=== PATIENT | female | born 1950 | race Caucasian/White ===

== ENCOUNTER 2017-12-08 09:33 | Emergency (ER) | payer MEDICARE, SELFPAY ==
[2017-12-08 09:33] VITALS: BP 192/99; PULSE 82; RESP 15; TEMP 36.5; O2SAT 97; BMI 35.5
--- NOTE | 2017-12-08 09:35 | NURSING ---
SYNCOPE, KWESI, HYPERKALEMIA, HX CAD PCU STEPDOWN KRANTHI
[2017-12-08 09:50] VITALS: BP 181/91
--- NOTE | 2017-12-08 10:26 | ED.RN ---
BP prior to sports medicine specialist 149/75. physician aware. No med given.
[2017-12-08 10:30] VITALS: BP 149/75
[2017-12-08 10:42] VITALS: BP 130/71; PULSE 72; RESP 16
--- NOTE | 2017-12-08 11:36 | ED.VISSUMM ---
- ER Visit Summary Date of Service: 12/08/17 Chief Complaint: Facial numbness History of Present Illness: The patient is a 67 F who presents with abril-aural numbness yesterday. She now complains of right-sided facial numbness. She denies any ocular, visual auditory symptoms. She has trouble speech or swallowing. She denies any cardiac arrest or symptoms. She denies nausea, vomiting diarrhea. She denies any paresthesia, anesthesia motors in the extremities. I trouble with balance or walking. 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 Physical Examination: Initial blood pressure was 181/91. Patient has altered sensation right side including the forehead. There is a slight ptosis noted on the right which is new. Her smile is not asymmetric. There is a difference in the nasolabial fold on the right. She denies any numbness of her tongue. She denies any troubles swallowing or speaking and had no change in her voice. Trach is midline. There is no stridor. Heart is regular without murmur, gallop or rub. S1 and S2 are normal. Lungs are clear to auscultation with good movement of air bilaterally. She is alert and oriented ?3. Motor in the upper lower extremity is 5/5. Sensation in the upper lower extremity is normal. DTRs are symmetric no clonus or Babinski. Slight ptosis on the right with altered sensation right forehead cheek and jaw. Gait was observed and normal. Test Results: None Emergency Department Course and Treatment: Since industrial blood pressure was elevated patient had subsequent blood pressure and most recent is 130/71. Treatment Plan: Burst of prednisone and appropriate home-going instructions for Henry's palsy. She was given a prescription for ophthalmic ointment to be instilled at night and for patient to taper eyelid shot. Disposition: Discharged to home Impression: Henry's palsy This note was generated with [email or web address] dictation software. It may contain incorrect words, spelling, and punctuation that were not noted in review of the chart prior to signing ED Disposition - Plan for ED Patient: Disposition: Home or Assisted Living Chief Complaint: Numb/Ting Instructions: Henry's Palsy Prescriptions: Erythromycin Ophthalmic 1 applic RIGHT EYE QHS #1 tube Prednisone [Deltasone] 40 mg PO DAILY #10 tab Referrals: Shelbi Holloway MD [Primary Care Provider] - 5-7 Days Additional Instructions: Instill 1 drop of artificial tears right eye every hour while awake for the next 5-7 days
[2017-12-08 11:47] VITALS: BP 144/85
== END 2017-12-08 11:47 | disposition home or self-care (01) ==
PROVIDERS: Emergency Provider Emergency Medicine; Family Provider Internal Medicine; PCP Internal Medicine
DX: G51.0 Bell's palsy (principal); E66.9 Obesity, unspecified; Z68.35 Body mass index [BMI] 35.0-35.9, adult; I10 Essential (primary) hypertension
CPT/HCPCS: 99283; A4216

== ENCOUNTER 2018-10-03 15:51 | Emergency (ER) | payer MEDICARE, SELFPAY ==
[2018-10-03 15:52] VITALS: BP 154/82; PULSE 114; RESP 15; TEMP 37; O2SAT 97; BMI 36.3
--- NOTE | 2018-10-03 16:03 | ED.VISSUMM ---
- ER Visit Summary Date of Service: 10/03/18 Chief Complaint: [Right knee pain] History of Present Illness: The patient is a 68 F [presents the emergency department with complaint of pain in her right knee for about 10 days. Patient denies any injury. Patient was seen at urgent care 3 days ago and given oral prednisone and referral to orthopedics but not till October 19. Patient not taken any ibuprofen or Tylenol for discomfort. Patient states that the knee hurts all the time and especially with walking. She does have a history of arthritis. Any fevers or recent illness. Patient states the knee always is swollen. Denies any chest pain or shortness of breath. No recent travel.] Physical Examination: [HEENT-PERRLA, EOMI. Cranial nerves II through XII grossly intact. TMs clear. Mucous membranes moist. No adenopathy. Cardiovascular-regular rate and rhythm without murmur or ectopy Lungs-clear to auscultation, chest wall stable without crepitus or subcu emphysema Abdomen-normoactive bowel sounds, soft, nontender, no rebound or rigidity, no peritoneal signs. Extremities-intact ?4, normal range of motion, normal pulses, atraumatic. Right knee-there is no effusion. The knee is atraumatic. There is no erythema or warmth noted. Patient has pain with range of motion in flexion extension. She is neurovascular intact distally. No ropes or cords palpated. No edema of the lower extremity noted.] Test Results: [X-rays of the right knee shows a degenerative arthrosis otherwise nothing acute.] Emergency Department Course and Treatment: Patient was given an Roger wrap [] Treatment Plan: [Given a prescription for [place] and referral for follow-up with orthopedics] Disposition: [Discharged home stable condition] Impression: Right knee pain [] This note was generated with [employer] software. It may contain incorrect words, spelling, and punctuation that were not noted in review of the chart prior to signing ED Disposition - Plan for ED Patient: Referrals: Shelbi Holloway MD [Primary Care Provider] -
--- NOTE | 2018-10-03 16:08 | RAD_ITS ---
STUDY: X-RAY - RIGHT KNEE REASON FOR EXAM: Female, 68 years old. Knee pain TECHNIQUE: 4 view(s) of the knee. COMPARISON: None. FINDINGS: Normal visualized distal femur. Normal visualized proximal tibia and fibula. Normal proximal tibiofibular articulation. There is moderate degenerative arthrosis of the medial femorotibial compartment with moderate joint space narrowing. There is mild degenerative arthrosis of the lateral femorotibial compartment. There is mild degenerative arthrosis of the patellofemoral articulation. There is a soft tissue prominence in the suprapatellar region suggesting a small volume joint effusion. The soft tissue structures are unremarkable. RAD/Knee 4 or More Views IMPRESSION: Degenerative arthrosis. Electronically Signed: Roosevelt Minor MD at 16:31 EDT Tel , Service support ,
--- NOTE | 2018-10-03 16:39 | DCINST.ED_ITS ---
ED Disposition - Plan for ED Patient: Instructions: KNEE PAIN, Uncertain Cause Prescriptions: Hydrocodone Bitart/Apap 5-325 [[place] 5MG-325MG] 1 tab PO Q4H PRN PRN 2 Days #20 tab PRN Reason: Pain Prescription Printed Referrals: Shelbi Holloway MD [Primary Care Provider] - Shankar Buchanan DO [STAFF PHYSICIAN] - 3-5 Days
--- NOTE | 2018-10-03 16:41 | ED.DEP ---
ED Disposition - Plan for ED Patient: Instructions: KNEE PAIN, Uncertain Cause Prescriptions: Hydrocodone Bitart/Apap 5-325 [[place] 5MG-325MG] 1 tab PO Q4H PRN PRN 2 Days #20 tab PRN Reason: Pain Prescription Printed Referrals: Shelbi Holloway MD [Primary Care Provider] - Shankar Buchanan DO [STAFF PHYSICIAN] - 3-5 Days
--- NOTE | 2018-10-03 16:50 | ED.RN ---
DISCHARGE INSTRUCTIONS GIVEN TO AND REVIEWED WITH PATIENT, PATIENT DENIES QUESTIONS OR CONCERNS AND VOICES UNDERSTANDING OF DISCHARGE INSTRUCTIONS. PT AMBULATES OUT OF ROOM WITH STEADY GAIT.
== END 2018-10-03 16:50 | disposition home or self-care (01) ==
LOC: ED 16:37
PROVIDERS: Emergency Provider Emergency Medicine; Family Provider Internal Medicine; PCP Internal Medicine
DX: M25.561 Pain in right knee (principal); Z72.0 Tobacco use
CPT/HCPCS: 73564; 99282

== ENCOUNTER 2020-07-03 07:14 | Emergency (ER) | payer MEDICARE, SELFPAY ==
[2020-07-03 07:15] VITALS: BP 205/116; PULSE 100; RESP 20; TEMP 36.6; O2SAT 98; BMI 38.7
--- NOTE | 2020-07-03 07:28 | ED.VIS.GEN ---
History of Present Illness Chief Complaint: Foreign Body Informant: Patient Narrative: 69-year-old female states that about an hour prior to arrival she felt something crawl in her face and swatted at it and the cockroach went into her ear. She states she used some mineral oil and hydrogen peroxide and feels that it burrowing into her ear. She notes discomfort of the ear. No change in hearing. Past Medical History - Allergies and Home Meds Allergies/Adverse Reactions: Allergies No Known Allergies Allergy (Verified 07/03/20 07:16) Primary Care Physician: Shelbi Holloway MD [Primary Care Provider] - Past Medical History: None Surgical History: noncontributory Lives: Spouse/ Significant Other Smoking Status: Unknown if ever smoked Drugs: None Review of Systems General: Denies: Chills, Fever, Sweats Eyes: Denies: Visual changes - bilaterally, Diplopia ENT: Reports: Left ear pain. Denies: Rhinorrhea, Sore throat Cardiovascular: Denies: Chest pain, Palpitations Respiratory: Denies: Dyspnea, Cough, Dyspnea on exertion Gastrointestinal: Denies: Abdominal pain, Nausea, Vomiting, Diarrhea, Melena, Hematochezia Genitourinary: Denies: Dysuria, Hematuria, Frequency Musculoskeletal: Denies: Back pain, Extremity Pain Skin: Denies: Rash, Wounds Neurological: Denies: Headache, Weakness, Numbness Physical Exam Vital Signs/Narrative: Vital Signs Temp Pulse Resp BP Pulse Ox 07/03/20 07:15 97.8 F 100 20 H 205/116 H 98 Inital Vital Signs reviewed: Yes General: Well nourished, Well developed, No Acute Distress Head: Normocephalic, Atraumatic Eyes: Perrl, EOMI ENT: Moist mucous membranes, No rhinorrhea, - - Left tympanic membrane is slightly erythematous but intact. There is no obvious arthropod in the canal. There is a small amount of cerumen on the anterior aspect of the canal. Neck: Supple, Nontender Cardiovascular: Regular rate, Regular rhythm, No murmurs Respiratory: No distress, CTA bilaterally, Chest nontender Abdomen: Soft, Nontender, Nondistended, Normal bowel sounds Back: Nontender, Normal Inspection Extremities: Nontender, No edema Skin: Normal color, No rash Neurological: Alert, Oriented x3, Cranial nerves II-XII grossly intact, Normal Strength, Normal Sensation Psychological: Normal affect, Normal Mood Diagnostic/Tx/Re-eval - Medical Decision Making Warm water was used to irrigate the canal and the cerumen was removed. No foreign body noted. Membrane is intact. There is no canal lacerations or abrasions. Patient will be given supportive care. ED Disposition - Plan for ED Patient: Disposition: Home or Assisted Living Diagnosis: Cerumen in auditory canal on examination Instructions: ED Foreign Body, Ear Canal (Removed) Referrals: Shelbi Holloway MD [Primary Care Provider] - As Needed
[2020-07-03 07:48] VITALS: RESP 16
== END 2020-07-03 07:48 | disposition home or self-care (01) ==
PROVIDERS: Emergency Provider Emergency Medicine; PCP Internal Medicine
DX: H61.22 Impacted cerumen, left ear (principal)
CPT/HCPCS: 99282

== ENCOUNTER 2021-03-09 21:21 | Emergency (ER) | payer MEDICARE, SELFPAY ==
[2021-03-09 21:21] VITALS: BP 116/111; PULSE 119; RESP 22; TEMP 39.1; O2SAT 95; BMI 36.3
--- NOTE | 2021-03-09 22:01 | RAD_ITS ---
STUDY: X-RAY CHEST REASON FOR EXAM: Female, 70 years old. fever, cough TECHNIQUE: Single AP portable view of the chest. COMPARISON: February 12, 2012 FINDINGS: The lungs are clear and expanded. There is no demonstrated pleural abnormality. Normal size heart. Normal mediastinum and alex. Normal visualized pulmonary arteries. Normal visualized aortic arch and descending thoracic aorta. There are diffuse degenerative changes of the visualized thoracic spine. Normal visualized ribs, clavicles, and shoulders. There is no demonstrated abnormality of the visualized soft tissue structures of the upper abdomen. RAD/Chest 1 View (Portable) IMPRESSION: Degenerative changes, as described above. No demonstrated acute cardiopulmonary process. Electronically Signed: Henry Fuentes MD at 23:20 EST , Service support ,
[2021-03-09] MEDS: Acetaminophen 500 MG Tablet 1000 MG PO (22:24)
[2021-03-09 22:28] VITALS: PULSE 113; RESP 18; O2SAT 93
--- NOTE | 2021-03-09 22:58 | EDS_ITS ---
HPI History of Present Illness Chief Complaint: Fever Informant: patient Onset/Context/Timing Onset: Days Context: Gradual Onset Current Severity: Moderate Maximum Severity: Moderate Narrative Narrative: Patient present secondary to fever, chills, sore throat, headache, congestion, cough. Symptoms have been ongoing for the last 3 to 4 days. She denies known exposure to Covid. She did not receive the Covid vaccine. She has not taken anything this evening for fever. [facility] Medical History Anxiety Depression Diabetes Former smoker Hypertension Home Medications erythromycin 1 applic RIGHT EYE QHS #1 tube 12/08/17 [Rx Last Taken Unknown] prednisone 40 mg PO DAILY #10 tab 12/08/17 [Rx Last Taken Unknown] azithromycin [Zithromax] 250 mg PO DAILY 4 Days #4 tab 03/09/21 [Rx Last Taken Unknown] lisinopril-hydrochlorothiazide 1 tab PO DAILY 03/09/21 [History Last Taken Unknown] Allergy/AdvReac Type Severity Reaction Status Date / Time No Known Allergies Allergy Verified 03/09/21 22:31 Surgical History History of History of cholecystectomy Social History Smoking Status: Former smoker ROS ROS ED Constitutional Constitutional ED: Reports chills and fever(s) Eyes Eyes: Denies blurry vision ENT ENT ED: Reports sore throat and other Details: Congestion ; Denies ear pain Cardiovascular Cardiovascular: Denies chest pain Respiratory/Chest Respiratory/Chest: Reports cough and dyspnea Gastrointestinal Gastrointestinal: Denies abdominal pain, diarrhea, nausea or vomiting Genitourinary Genitourinary ED: Denies dysuria Musculoskeletal Musculoskeletal: Reports myalgias Neurologic Neurologic: Reports headache(s) Psychiatric Psychiatric: Denies anxiety or depression Endocrine Endocrinology: Denies polydipsia or polyuria EXAM Physical Exam Const Vital Signs: 03/09/21 21:21 03/09/21 22:28 Temperature 102.4 F H Temperature Source Oral Pulse Rate 119 H 113 H Respiratory Rate 22 H 18 Respiratory Effort Normal Respiratory Pattern Normal Blood Pressure 116/111 H Blood Pressure Mean 112 Pulse Ox 95 93 Oxygen Delivery Method Room Air Room Air Positive well nourished and well developed General Appearance ED: well developed HEENT Reports moist mucous membranes HEENT Narrative: Posterior pharynx exam unremarkable. Eyes PERRL and EOMs intact bilaterally Neck no lymphadenopathy and supple Resp normal respiratory effort and clear to auscultation bilaterally Cardio regular rate and regular rhythm GI normal to inspection, nondistended, normoactive bowel sounds and non-tender Palpation: soft Extremity normal to inspection Neuro oriented x3 Sensorium / Orientation: alert Psych mental status grossly normal Skin no rashes or lesions noted MDM MDM MDM Narrative Medical decision making narrative: Patient given Tylenol on arrival. Chest x- ray and rapid Covid test obtained. Radiography Chest X-Ray - ED: 1 View, Read by ED Physician, Normal, Heart, Lungs and Mediastinum Treatment and Re-Evaluation Comments:: Patient's chest x-ray per my interpretation is unremarkable. Rapid Covid test is negative. PCR test is ordered. 30 minutes after Tylenol temperature is down to 100.0. I discussed test results with the patient. She does not want a wait here in the ER for the results of the PCR test. I will treat her with a Z-Greg. If her PCR test comes back positive she will receive a phone call in the morning with the test result. She understands this. Discharge Plan Triage Chief Complaint: Fever ED Provider: Martine Isaac Dx/Rx/DC Orders Clinical Impression: Bronchitis, Fever Instructions: Acute Bronchitis, ED Fever Control (Adult) Prescriptions: New azithromycin [Zithromax] 250 mg tablet 250 mg PO DAILY 4 Days Qty: 4 RF: 0 No Action prednisone 20 MG tablet 40 mg PO DAILY Qty: 10 RF: 0 erythromycin 1 GM ointment 1 applic RIGHT EYE QHS Qty: 1 RF: 0 lisinopril-hydrochlorothiazide 20-12.5 mg tablet 1 tab PO DAILY RF: 0 Primary Care Provider: Shelbi Holloway Referrals: Shelbi Holloway MD [Primary Care Provider] - 1 Week if not improving Disposition Disposition: Home, Self Care
[2021-03-09 23:11] VITALS: BP 123/71; PULSE 101; RESP 15; O2SAT 93
== END 2021-03-09 23:13 | disposition home or self-care (01) ==
PROVIDERS: Emergency Provider Emergency Medicine; PCP Internal Medicine
DX: J40 Bronchitis, not specified as acute or chronic (principal); R50.9 Fever, unspecified; I10 Essential (primary) hypertension; Z79.899 Other long term (current) drug therapy; Z87.891 Personal history of nicotine dependence
CPT/HCPCS: 71045; 87426; 87635; 99282; U0005; U0003

== ENCOUNTER 2021-03-18 18:49 | Emergency (ER) | payer MEDICARE, SELFPAY ==
[2021-03-18 18:50] VITALS: BP 178/142; PULSE 104; RESP 22; TEMP 36.4; O2SAT 93; BMI 36.3
--- NOTE | 2021-03-18 18:53 | EKG12_ITS ---
Test Reason : SOB Blood Pressure : / mmHG Vent. Rate : 096 BPM Atrial Rate : 096 BPM P-R Int : 182 ms QRS Dur : 078 ms QT Int : 332 ms P-R-T Axes : 046 019 029 degrees QTc Int : 419 ms Normal sinus rhythm Normal ECG Confirmed by MARCUS GARCIA, TITI ([id number]), editor house organ GENTRY BLOCK ([id number]) on 03/22/2021 9:45:02 AM Referred By: ELEAZAR Confirmed By:GISELA VELAZQUEZ MD
--- NOTE | 2021-03-18 18:55 | RAD_ITS ---
INDICATION: SOB EXAMINATION/TECHNIQUE: X-RAY - XR Chest 1 View COMPARISON: 03/09/2021 FINDINGS: Chronic lung changes. No acute lung findings. Tortuous and calcified thoracic aorta. The heart is not enlarged. No pleural effusion or pneumothorax. No acute osseous abnormalities. RAD/Chest 1 View (Portable) IMPRESSION: No acute radiographic abnormalities. COPD. Electronically Signed: Jared Williamson MD at 19:44 EST Tel , Service support ,
[2021-03-18 19:34] LABS: Absolute Lymphocyte Count 1.58 X10^3/uL (0.83-4.51); Absolute Neutrophil Count 4.2 X10^3/uL (2.0-7.7); Basophil# 0.02 X10^3/uL; Basophil% 0.3 % (0-1); Eosinophil# 0.04 X10^3/uL; Eosinophils% 0.6 % (0-5); Hematocrit 41.7 % (37-47); Hemoglobin 14.2 g/dL (12.0-15.0); Lymphocyte # 1.58 X10^3/ul (0.83-4.51); Lymphocyte % 23.9 % (19-41); Mean Corp Hgb Conc 34.1 g/dL (32-36); Mean Corpuscular Hgb 30.4 pg (27.0-32.0); Mean Corpuscular Volume 89.3 fL (81-99); Mean Platelet Vol. 9.7 fl (6.2-12.0); Monocyte# 0.71 X10^3/uL; Monocyte% 10.8 % (0-10); NRBC Flagged by Analyzer 0 % (0-5); Neutrophil # 4.22 X10^3/uL (2.7-7.7); Neutrophil % 63.9 % (47-70); Platelet Count 302 K/mm3 (150-450); RBC Distribution Width SD 39.1 fl (35.1-43.9); Red Blood Count 4.67 M/mm3 (4.2-5.4); White Blood Count 6.6 K/mm3 (4.4-11.0)
[2021-03-18 19:50] LABS: Anion Gap 7 (5-15); BUN 16 mg/dL (7-18); BUN/Creat Ratio 18.3 RATIO (10-20); Calcium,Total 9.2 mg/dL (8.5-10.1); Chloride 98 mmol/L (98-107); Creatinine, Serum 0.87 mg/dL (0.55-1.02); EST Glomerular Filtration Rate 69 mL/min (>60); Est Glom Filt Rate - Afr Amer 83 mL/min (>60); Estimated Creatinine Clearance 57.94 ml/min; Glucose 137 mg/dL (74-106); Potassium 3.6 mmol/L (3.5-5.1); Sodium Level 135 mmol/L (136-145)
--- NOTE | 2021-03-18 20:42 | EDS_ITS ---
HPI History of Present Illness Chief Complaint: Shortness of Breath Informant: patient Onset/Context/Timing Onset: Days Context: gradual Timing: Continuous Current Severity: Mild Maximum Severity: Mild Associated Symptoms cough Chest Pain: Positive for None Narrative Narrative: 70-year-old diabetic female with hypertension tested positive for Covid her initial rapid test was negative but then she had a PCR test that was positive. Her symptoms have been ongoing since the so she is around a 12. She was tested in [facility] emergency department. Patient was on prednisone. States she is feeling worse. PE Risk Factors: Negative for Cancer, OCP + Smoking + > 35, Prior DVT or PE, Recent immobilization, Recent surgery and Recent travel Prior similar symptoms: No Recent Illness/Hospitalization: No PFSH PFSH Medical History Anxiety Depression Diabetes Former smoker Hypertension Home Medications prednisone 40 mg PO DAILY #10 tab 12/08/17 [Rx Last Taken Unknown] lisinopril-hydrochlorothiazide 1 tab PO DAILY 03/09/21 [History Last Taken Unknown] dexamethasone [Decadron] 6 mg PO DAILY #10 tab 03/18/21 [Rx Last Taken Unknown] Allergy/AdvReac Type Severity Reaction Status Date / Time No Known Allergies Allergy Verified 03/09/21 22:31 Surgical History History of History of cholecystectomy Social History Smoking Status: Former smoker ROS ROS ED ROS Narrative Cough, fever, myalgias. Review of Systems ROS Unobtainable: Denies due to encephalopathy Constitutional Constitutional ED: Reports chills and fever(s) Eyes Eyes: Denies change in vision ENT ENT ED: Denies ear pain or sore throat Cardiovascular Cardiovascular: Denies chest pain or palpitations Respiratory/Chest Respiratory/Chest: Reports cough and dyspnea Gastrointestinal Gastrointestinal: Reports nausea and vomiting; Denies abdominal pain or diarrhea Genitourinary Genitourinary ED: Denies dysuria Musculoskeletal Musculoskeletal: Reports arthralgias and myalgias Integumentary Denies rash Neurologic Neurologic: Denies headache(s) Psychiatric Psychiatric: Denies depression Endocrine Endocrinology: Denies polyuria Hematologic/Lymphatic Hematologic/Lymphatic: Denies easy bruising Allergic/Immunologic Allergic/Immunologic ED: Denies urticaria EXAM Physical Exam Narrative Exam Narrative: 62-year-old female vital signs stable pulse ox 93% on room air no signs hypoxia. Afebrile. Does not look septic or toxic. Initial blood pressure elevated 170 and 142 that will be rechecked. HEENT exam unremarkable. Neck nontender. Lungs clear to auscultation bilaterally. Heart regular rhythm no murmur rate about 100. Abdomen soft nontender normal bowel sounds no peritoneal signs. Moving all 4 extremities. Calves are nontender no edema or cords. Neurologically she is awake and alert with no focal motor deficits. Const Vital Signs: 03/18/21 18:50 03/18/21 19:30 03/18/21 19:32 Temperature 97.6 F L Temperature Source Temporal Pulse Rate 104 H Respiratory Rate 22 H Respiratory Effort Normal Blood Pressure 178/142 H Blood Pressure Mean 154 Pulse Ox 93 Oxygen Delivery Method Room Air Room Air Room Air Positive well nourished, well developed and obese; Negative for cachectic, contractures or unkempt General Appearance ED: well developed and NAD; Negative for unkempt, cachectic or contractures Nutritional Appearance: obese; Negative for cachectic HEENT Reports moist mucous membranes atraumatic; Negative for trauma or tenderness Eyes PERRL and EOMs intact bilaterally General Eye ED: Negative for pale conjunctiva Neck no lymphadenopathy, supple, no meningeal signs and no JVD General: Negative for tenderness Resp normal respiratory effort and clear to auscultation bilaterally Auscultation: Negative for rales, rhonchi or wheezes Cardio regular rate, regular rhythm, S1 normal heart sound, S2 normal heart sound and no murmurs GI non-tender, non-distended and no masses Auscultation: normoactive bowel sounds Palpation: soft; Negative for tender or guarding Back/Spine normal to inspection; Negative for no CVA tenderness Extremity normal to inspection General Extremety ED: Negative for edema or tenderness General Extremity: Negative for edema Neuro oriented x3 Sensorium / Orientation: alert, oriented to person, oriented to place and oriented to time; Negative for orientation impaired, confused, lethargic or stuporous Motor Exam: strength 5/5 throughout Psych mental status grossly normal Appearance: Negative for unkempt Thought Process: normal thought process Skin no wounds Lesions: no lesions Rashes: no rashes MDM MDM MDM Narrative Medical decision making narrative: 62-year-old diabetic female Covid positive by PCR day 12 of her symptoms. Labs are unremarkable glucose is 137. She will be discharged home on Decadron. She is unfortunately outside the window for monoclonal antibody therapy. Lab Data Attestation: I reviewed the patient's lab results. Lab results narrative: CBC shows a white count of 6. Hemoglobin 14. Electrolytes sodium 135 gap is 7 normal BUN and creatinine glucose 137. Chest x-ray Labs: Laboratory Results - last 24 hr 03/18/21 03/18/21 19:06 19:06 WBC 6.6 RBC 4.67 Hgb 14.2 Hct 41.7 MCV 89.3 MCH 30.4 MCHC 34.1 RDW Std Deviation 39.1 RDW Coeff of Shanon 12.0 Plt Count 302 MPV 9.7 Immature Gran % (Auto) 0.500 Neut % (Auto) 63.9 Lymph % (Auto) 23.9 Powell % (Auto) 10.8 H Eos % (Auto) 0.6 Baso % (Auto) 0.3 Absolute Neuts (auto) 4.2 Absolute Lymphs (auto) 1.58 Nucleated RBC % 0 Sodium 135 L Potassium 3.6 Chloride 98 Carbon Dioxide 30.0 Anion Gap 7 BUN 16 Creatinine 0.87 Estim Creat Clear Calc 57.94 Est GFR (MDRD) Af Amer 83 Est GFR (MDRD) Non-Af 69 BUN/Creatinine Ratio 18.3 Glucose 137 H Calcium 9.2 Radiography Chest X-Ray - ED: 1 View, Read by ED Physician, Read by Radiologist, Heart, Lungs, Mediastinum, Bony Structures, No Acute Disease and Chronic Changes Diagnostic Testing: Clinical Impression(s) from Imaging Studies Chest X-Ray 03/18/21 18:55 IMPRESSION: No acute radiographic abnormalities. COPD. Electronically Signed: Jared Williamson MD at 19:44 EST Tel , Service support , Chest x-ray no significant signs of Covid pneumonitis at this time. Discharge Plan Triage Chief Complaint: Shortness of Breath ED Provider: Jim Weathers Dx/Rx/DC Orders Clinical Impression: COVID-19, Diabetes, Hypertension Instructions: Human Coronaviruses Prescriptions: New dexamethasone [Decadron] 6 mg tablet 6 mg PO DAILY Qty: 10 RF: 0 No Action prednisone 20 MG tablet 40 mg PO DAILY Qty: 10 RF: 0 lisinopril-hydrochlorothiazide 20-12.5 mg tablet 1 tab PO DAILY RF: 0 Primary Care Provider: Shelbi Holloway Referrals: Shelbi Holloway MD [Primary Care Provider] - 3-5 Days if not improving Activity Restrictions/Additional Instructions: Plenty of fluids and rest. Watch your blood sugars and blood pressure closely. Follow-up with your doctor if not improving or return emergency department if you are feeling worse. Your labs were unremarkable. Your blood sugars running well. Your chest x-ray looked good. You will be started on the thyroid Decadron 6 mg a day for 10 more days. Disposition Disposition: Home, Self Care
[2021-03-18] MEDS: HYDROcodone Bitartrate/Apap 5/325 Tablet PO (20:56)
[2021-03-18 20:59] VITALS: O2SAT 95
[2021-03-18] MEDS: dexAMETHasone 4 MG Tablet 6 MG PO (21:05)
== END 2021-03-18 21:16 | disposition home or self-care (01) ==
PROVIDERS: Emergency Provider Emergency Medicine; PCP Internal Medicine
DX: U07.1 COVID-19 (principal); E11.9 Type 2 diabetes mellitus without complications; I10 Essential (primary) hypertension; E66.9 Obesity, unspecified; Z87.891 Personal history of nicotine dependence; Z79.52 Long term (current) use of systemic steroids; Z79.899 Other long term (current) drug therapy
CPT/HCPCS: 71045; 80048; 85025; 93005; 94760; 99284; A4216

== ENCOUNTER 2022-09-12 09:09 | Emergency (ER) | payer MEDICARE, SELFPAY ==
[2022-09-12 09:09] VITALS: BP 154/61; PULSE 89; RESP 18; TEMP 36.2; O2SAT 99; BMI 35.5
--- NOTE | 2022-09-12 09:36 | EX.ED.DYSGE1 ---
HPI History of Present Illness Chief Complaint: Lower Extremity Injury Detail of Chief Complaint: Atraumatic left knee pain status post total knee arthroplasty August 16 Informant: patient Onset/Context/Timing Onset: Weeks Context: Gradual Onset Timing: Intermittent and Waxes and wanes Quality: Pain Location: Left knee Current Severity: Mild Maximum Severity: Moderate Worsened by: Movement and weightbearing Relieved by: Nothing Associated Symptoms Associated Symptoms: No other symptoms Narrative Narrative: Patient is a 72-year-old woman who had a left total knee arthroplasty performed by Dr. Alexey Bass August [address] [facility]. She has not been compliant with the ice machine.. She has been applying heat. She states she attempted to get a hold of her doctor appears and was unsuccessful. Prior similar symptoms: No Recent Illness/Hospitalization: Yes PFSH PFS Medical History Anxiety Depression Diabetes Former smoker Hypertension Home Medications prednisone 20 mg tablet 40 mg PO DAILY #10 tabs 12/08/17 [Rx Last Taken Unknown] lisinopril 20 mg-hydrochlorothiazide 12.5 mg tablet 1 tab PO DAILY 03/09/21 [History Last Taken Unknown] dexamethasone 6 mg tablet (Decadron) 6 mg PO DAILY #10 tabs 03/18/21 [Rx Last Taken Unknown] dexamethasone 6 mg tablet (Decadron) 6 mg PO DAILY 10 days #10 tabs 03/18/21 [Rx Last Taken Unknown] hydrocodone-acetaminophen 5-325mg 5mg-325mg 1 tab PO Q6H PRN PRN Pain 3 days #10 TABLETS 09/12/22 [Rx Last Taken Unknown] Allergy/AdvReac Type Severity Reaction Status Date / Time No Known Allergies Allergy Verified 09/12/22 09:09 Surgical History History of History of cholecystectomy Social History (Updated 09/12/22 @ 09:[address] Sohail Mazariegos MD) household members: none Smoking Status: Former smoker ROS ROS ED Constitutional Constitutional ED: Denies chills, fever(s), subjective, sweats or weight loss Cardiovascular Cardiovascular: Denies chest pain or palpitations Respiratory/Chest Respiratory/Chest: Denies cough, dyspnea or dyspnea on exertion Musculoskeletal Musculoskeletal: Denies arthralgias, back pain, myalgias or neck pain Integumentary Denies rash Neurologic Neurologic: Denies paresthesias or weakness Hematologic/Lymphatic Hematologic/Lymphatic: Reports systems reviewed and no addt'l complaints, except as documented EXAM Physical Exam Const Vital Signs: 09/12/22 09:09 Temperature 97.1 F L Temperature Source Temporal Pulse Rate 89 Respiratory Rate 18 Blood Pressure 154/61 H Blood Pressure Mean 92 Pulse Ox 99 Oxygen Delivery Method Room Air Positive well nourished, well developed and obese General Appearance ED: well developed and NAD; Negative for cyanotic, diaphoretic or pallor Nutritional Appearance: obese HEENT Reports moist mucous membranes HEENT Narrative: Head is atraumatic normocephalic. Ears normal. Nares patent. Mucosa moist. Posterior pharynx is normal. Eyes PERRL and EOMs intact bilaterally General Eye ED: Negative for pale conjunctiva or scleral icterus Neck no lymphadenopathy, supple and no JVD Chest Wall inspection of chest normal and palpation of chest normal Resp normal respiratory effort and clear to auscultation bilaterally Cardio regular rate, regular rhythm, S1 normal heart sound, S2 normal heart sound and no murmurs Extremity Negative for normal to inspection Extremity Narrative: There is swelling of the left knee. Incision is intact with no erythema, warmth, fluctuance, lymphangitis or induration. There is no pain the patient the popliteal fossa. There is no palp mass in the popliteal fossa. There is no leg vein distention, palpable cords, pain along distribution deep venous system. There is no discoloration of the left lower extremity. There is pain outpatient anteriorly. Patient able to extend to 180 degrees and flex to 90 degrees. General Extremety ED: Yes tenderness Neuro oriented x3, CN's II-XII intact bilaterally and no sensory deficits noted Sensorium / Orientation: alert Psych Mood & Affect: depressed Skin no rashes or lesions noted, no wounds and skin turgor normal General Skin Exam: Negative for jaundice or pallor MDM MDM MDM Narrative Medical decision making narrative: Patient has postoperative pain. There is no concern for DVT. There is no concern for infection. Therefore imaging and laboratory studies were not obtained. Patient treated with opiate analgesia and discharged with short course. She was instructed to contact Dr. Bass for management of her postoperative pain History & Record Review Additional record(s) reviewed:: Prior outpatient record Discharge Plan Triage Chief Complaint: Lower Extremity Injury ED Provider: Sohail Mazariegos Dx/Rx/DC Orders Clinical Impression: Postoperative pain of left knee Instructions: ED Post Op Wound Check, Pain Prescriptions: New hydrocodone-acetaminophen [hydrocodone-acetaminophen] 5-325 mg tablet 1 tab PO Q6H PRN PRN (Reason: Pain) 3 Days Qty: 10 0RF No Action prednisone 20 MG tablet 40 mg PO DAILY Qty: 10 0RF Rx Instructions: With food lisinopril-hydrochlorothiazide 20-12.5 mg tablet 1 tab PO DAILY dexamethasone [Decadron] 6 mg tablet 6 mg PO DAILY Qty: 10 0RF dexamethasone [Decadron] 6 mg tablet 6 mg PO DAILY 10 Days Qty: 10 0RF Primary Care Provider: Shelbi Holloway Referrals: Alexey Bass MD [Non-Staff] - 1-2 Days if not improving Shelbi Holloway MD [Primary Care Provider] - Disposition Disposition: Home, Self Care
[2022-09-12] MEDS: HYDROcodone Bitartrate/Apap 5/325 Tablet PO (09:52)
[2022-09-12 10:33] LABS: Troponin-I HS (w/2H Reflex) 13 pg/mL (3.0-54.0)
[2022-09-12 12:12] LABS: Reflex Troponin-HS? (from REC) Y
[2022-09-12 12:50] LABS: Troponin-I HS 10 pg/mL (3.0-54.0)
[2022-09-12 13:11] VITALS: RESP 18
== END 2022-09-12 13:12 | disposition home or self-care (01) ==
PROVIDERS: Emergency Provider Emergency Medicine; PCP Internal Medicine; Visit Provider Emergency Medicine
DX: G89.18 Other acute postprocedural pain (principal); M25.562 Pain in left knee; E66.9 Obesity, unspecified; Z96.652 Presence of left artificial knee joint; Z87.891 Personal history of nicotine dependence
CPT/HCPCS: 84484; 93005; 99284; A4216

== ENCOUNTER 2022-11-24 15:00 | Outpatient (RCR) | payer MEDICARE, SELFPAY ==
--- NOTE | 2022-09-20 14:48 | HP.PTEVAL ---
Patient's Visit Information RICKY KRISHNA is a 72 year old F referred to Physical Therapy by Dr. Alexey Bass MD with a diagnosis of L TKA, 08/19/22. Date of Evaluation: 09/20/22 Physical Therapist: Balaji Cohn, DPT, OCS, CSCS - Visit Plan Frequency: 3x /Week Duration: 4-6 Weeks Plan: 3x/weeek for 4 weeks for.. 1 Patellar mobs and PROM knee ext and flkexion, exercises to encourage. Rollout quad. 2. strength WB and machines L knee and leg. Gait and steps. ice as needed - Subjective 08/19/22 had L TKA by Dr. Bass. Had PT at home since. Knee was worn out but no walker needed prior. Uses wh walker now b/c she gets tired easy. Pain is 2/10 now but normally worse and having trouble sleeping at night. Pain is 9/10 at times at night. 'Wh walker to get around most of day, sometimes without it. Needs it for balance. HEP: SLR x 3, squats, standing leg raises. Not employed. Spends day doing not much , TV and crafts. Able to do them. HobbiesL crafts. Steps at home with R leg only. - Pain L knee Pain Intensity (Out of 10): 2 Pain Intensity Range: 2, 9 - Objective Walks into clinic with wh walker mod I. Transfers I with UE. Steps with R only and needs two rails. Walks without AD for FGA [id number] feet SBA to I. L knee AROM -8 to 110 aROM and r is -4 to 110. patella L is very stiff vs R. hip and ankles aROM WFL. Not overly swollen, incision is healed and no signs of excessive redness heat or swelling. strength in hips is 3+ abd and ext adn 4- flexion R and 3+ L. knee ext 3+ L and 4 R, HSC 4- L and 4 R. ankles 4+ B. - homans. Does not get full extnesion when walking in L knee but flexion looks good. - Balance/Special Test Scores WOMAC Total Score: 50 WOMAC Percentatge: 47.9200 - Goals Goal 1:: -1-118 aROM L knee to help with gait Goal Time Frame: 4-6 Weeks Goal 2:: sleep thru night without interruption Goal Time Frame: 4-6 Weeks Goal 3:: Walk community without Ad or gait deivations Goal Time Frame: 4-6 Weeks Goal 4:: womac score 15 or less Goal Time Frame: 4-6 Weeks - Rehabilitation Potential Physical Therapy Diagnosis: s/p L TKA Rehabilitation Potential: Fair - Anticipated Interventions Patient/Client Instruction: Educate patient on: Condition, Plan of Care For the Purpose of:: To decrease pain, To increase ROM, To improve nutrient delivery to tissue, To improve muscle performance and motor function, To increase tolerance to activity/condition/position Therapeutic Exercise to Include: Strength training, Postural training, Flexibilty training, Gait and locomotor training, Passive ROM, Active ROM For the Purpose of:: To decrease pain, To increase ROM, To improve nutrient delivery to tissue, To increase oxygenation perfusion, To increase tolerance to activity/condition/position, To improve ability of physical actions for home/community/work/leisure, To improve gait and locomotor functions Manual Therapy Techniques to Include: Mobilization, Passive ROM, Soft tissue mobilization For the Purpose of:: To decrease pain, To increase ROM, To improve nutrient delivery to tissue, To increase tolerance to activity/condition/position, To improve ability of physical actions for home/community/work/leisure, To improve gait and locomotor functions Cryotherapy (ice pack, ice massage): Yes For the Purpose of:: To decrease pain, To increase ROM Thank you for the opportunity to evaluate your patient. For Medicare and Medicare HMO plans, please review the plan of care and approve it. It will need to be FAXED BACK to us at [phone] for Medicare purposes. For Medicare only, by signing this I certify the plan of care. Please let me know if there are questions or concerns regarding this plan of care. Physician Signature: Date:
--- NOTE | 2022-11-24 15:02 | HP.PTDCSUM ---
Discharge Summary D/C summary: It has been my pleasure to treat RICKY KRISHNA referred by Dr. Alexey Bass MD, with the diagnosis of L TKA, 08/19/22 for a total of 17 visit(s). Discharge Date: 11/24/22 Please see the following information for a summary of their discharge status. Subjective Subjective: Im stiff. i get stiff if I sit very long(30 min ride up here). Pain overall is not bad only to 2/10 this week. Mostly comfortable. Sleep is OK. Activities are pretty normal. Has to take time to do things. can wash dishes and sweep floor but does so slowly. No AD needed. No f/u with doctor. Will continue via HEP as she has no ride to gym. Pain L knee: Pain Intensity (Out of 10): 2 Overall Improvement % Improvement: 90 Objective Objective/Function: -1 to 121 AROM today. Fucntional strength on steps up and down with one rail and only slightly weaker L. Walkign safe and I without AD> Goals Goal 1:: -1-118 aROM L knee to help with gait Goal Progress: Goal Met Goal 2:: sleep thru night without interruption Goal Progress: Goal Met Goal 3:: Walk community without Ad or gait deivations Goal Progress: Goal Met Goal 4:: womac score 15 or less Goal Progress: Progressing Plan Plan: d/c to HEP D/C Information d/c sentence: If there are questions or concerns regarding this patient's physical therapy, please feel free to call me at [phone]. Thank you for the referral of this patient. Sincerely, Balaji Cohn, DPT, OCS, CSCS Balance/Gait/Functional tests Balance/Special Test Scores WOMAC Total Score: 26 WOMAC Percentage: 71.7400
== END 2022-11-24 15:06 | disposition home or self-care (01) ==
LOC: PT 15:00
PROVIDERS: PCP Internal Medicine; Referring Provider Orthopaedic Surgery; Visit Provider Orthopaedic Surgery
DX: Z96.652 Presence of left artificial knee joint (principal)
CPT/HCPCS: 97110; 97116; 97140; 97161; 97164; 97530

== ENCOUNTER 2024-03-29 20:31 | Emergency (ER) | payer MEDICARE, SELFPAY ==
[2024-03-29 20:31] VITALS: BP 162/87; PULSE 94; RESP 16; TEMP 36.6; O2SAT 98; BMI 35.0
--- NOTE | 2024-03-29 20:51 | EKG12_ITS ---
Test Reason : DYSRHYTHMIA Blood Pressure : */* mmHG Vent. Rate : 82 BPM Atrial Rate : 82 BPM P-R Int : 198 ms QRS Dur : 80 ms QT Int : 390 ms P-R-T Axes : 35 0 61 degrees QTcB Int : 455 ms Normal sinus rhythm Inferior infarct , age undetermined Abnormal ECG Confirmed by MARCUS GARCIA, TITI ([id number]), editor at large GENTRY BLOCK ([id number]) on 04/03/2024 1:35:12 P M Referred By: BB Confirmed By: TITI VELAZQUEZ MD
--- NOTE | 2024-03-29 20:53 | ED.VIS.BACK ---
HPI History of Present Illness Chief Complaint: Back Informant: patient Narrative Narrative: 2 days or so gradual onset pain in the upper back and right anterior lateral lower chest, feels like it is in the ribs as a result of the pain in the back which she has had before as a result of muscular pain. In the past it was related to heavy lifting. She states it occasionally flares up on her. This feels like that except the pain is coming around. She denies any dyspnea or pleuritic discomfort, it all hurts worse to move. She has been coughing for a while it is no worse and she denies any fevers or chills or GI symptoms. [facility] Medical History Anxiety Depression Diabetes Former smoker Hypertension Home Medications ?Medication ?Instructions ?Recorded ?Last Taken ?Type prednisone 20 mg tablet 40 mg (2 x 20 mg) PO DAILY #10 tabs 12/08/17 Unknown Rx lisinopril 20 1 tab PO DAILY 03/09/21 Unknown History mg-hydrochlorothiazide 12.5 mg tablet dexamethasone 6 mg tablet 6 mg PO DAILY #10 tabs 03/18/21 Unknown Rx (Decadron) dexamethasone 6 mg tablet 6 mg PO DAILY 10 days #10 tabs 03/18/21 Unknown Rx (Decadron) hydrocodone-acetaminophen 5-325mg 1 tab PO Q6H PRN PRN Pain 3 days 09/12/22 Unknown Rx 5mg-325mg #10 TABLETS orphenadrine citrate 100 mg 100 mg PO BID PRN muscle pain #10 03/29/24 Unknown Rx tablet,extended release tabs Allergy/AdvReac Type Severity Reaction Status Date / Time No Known Allergies Allergy Verified 09/12/22 09:09 Surgical History History of partial knee replacement History of History of cholecystectomy Social History household members: none Smoking Status: Former smoker ROS ROS ED Constitutional Constitutional ED: Denies chills or fever(s) Eyes Eyes: Denies change in vision or diplopia ENT ENT ED: Denies rhinorrhea or sore throat Cardiovascular Cardiovascular: Reports chest pain; Denies palpitations Respiratory/Chest Respiratory/Chest: Reports cough; Denies dyspnea Gastrointestinal Gastrointestinal: Denies abdominal pain, diarrhea, nausea or vomiting Genitourinary Genitourinary ED: Denies dysuria or hematuria Musculoskeletal Musculoskeletal: Reports back pain; Denies neck pain Integumentary Denies abscess or rash Neurologic Neurologic: Denies headache(s), paresthesias or weakness Psychiatric Psychiatric: Denies anxiety or suicidal thoughts EXAM Physical Exam Const Vital Signs: 03/29/24 20:31 03/29/24 21:09 Temperature 98 F Temperature Source Oral Pulse Rate 94 Respiratory Rate 16 Blood Pressure 162/87 H Blood Pressure Mean 112 Pulse Ox 98 95 Oxygen Delivery Method Room Air Room Air Positive well nourished and well developed General Appearance ED: well developed and NAD HEENT Reports moist mucous membranes normocephalic and atraumatic Eyes PERRL and EOMs intact bilaterally Neck full ROM and supple Chest Wall Chest Narrative: Right lower lateral rib cage where she is having pain and inframammary area is nontender but the patient has more pain there with movement. No subcutaneous emphysema or palpable step-off. Equal breath sounds bilaterally. Resp normal respiratory effort and clear to auscultation bilaterally Resp Narrative: No splinting with deep inspiration. Cardio regular rate, regular rhythm and no murmurs Rate: Negative for tachycardic GI non-tender and non-distended Auscultation: normoactive bowel sounds Palpation: soft Back/Spine no CVA tenderness Back/Spine Narrative: Back pain is reproducible with palpation in the right rhomboids at 1 particular level a little on the caudal aspect. Normal inspection of this area. No bony step-off or significant bony tenderness. General Back: other FROM Extremity normal to inspection General Extremety ED: Negative for edema, pulses abnormal or tenderness General Extremity: Negative for edema or pulses abnormal Neuro oriented x3, CN's II-XII intact bilaterally and no sensory deficits noted Sensorium / Orientation: awake and alert Motor Exam: strength 5/5 throughout Skin no rashes or lesions noted and no wounds MDM MDM MDM Narrative Medical decision making narrative: I suspect the etiology of the patient's symptoms is musculoskeletal given her history, however with her having right-sided chest discomfort with this, considered other etiologies. Less likely to be pulmonary embolus and she has no tachycardia, hypoxemia, or pleuritic symptoms. Her EKG is normal, her troponin is normal ruling out acute coronary syndrome since she has had the symptoms for couple days. Two-view chest x-ray on my interpretation shows no acute pneumonia, no pneumothorax, no obvious displaced rib fracture and the thoracic vertebrae are clearly visible and appear unremarkable. The rest of her labs are unremarkable. She was initially given a small dose of morphine as well as Norflex. She is feeling much better on reevaluation. Will prescribe her some muscle relaxer to use as needed, follow-up advised if symptoms persist. Lab Data Attestation: I reviewed the patient's lab results. Labs: Laboratory Results - last 24 hr 03/29/24 21:01 WBC 9.3 RBC 4.68 Hgb 14.6 Hct 41.3 MCV 88.2 MCH 31.2 MCHC 35.4 RDW Std Deviation 37.2 RDW Coeff of Shanon 11.7 Plt Count 307 MPV 10.3 Immature Gran % (Auto) 0.600 Neut % (Auto) 52.7 Lymph % (Auto) 32.3 Hinds % (Auto) 9.2 Eos % (Auto) 5.0 Baso % (Auto) 0.2 Absolute Neuts (auto) 4.9 Absolute Lymphs (auto) 2.99 Nucleated RBC % 0 Sodium 136 Potassium 3.6 Chloride 102 Carbon Dioxide 29.0 Anion Gap 5 BUN 19 H Creatinine 1.11 H Estim Creat Clear Calc 55.04 Est GFR (MDRD) Af Amer 62 Est GFR (MDRD) Non-Af 51 L BUN/Creatinine Ratio 17.1 Glucose 224 H Calcium 9.4 Troponin I High Sens 14 Rhythm Strip Rhythm Strip: Sinus Rhythm Rate: 85 Ectopy: None EKG Initial EKG: Attestation: I personally reviewed and interpreted this EKG as follows: Interpretation: Sinus Rhythm and No Acute Injury Pattern Comments: Nml axis & intervals; nml EKG Discharge Plan Triage Chief Complaint: Back ED Provider: Alexey Johnson Dx/Rx/DC Orders Clinical Impression: Upper back pain on right side, Right-sided chest wall pain Instructions: ED Back Pain (Acute or Chronic) Prescriptions: New orphenadrine citrate 100 mg tablet extended release 100 mg PO BID PRN (Reason: muscle pain) Qty: 10 0RF No Action prednisone 20 MG tablet 40 mg PO DAILY Qty: 10 0RF Rx Instructions: With food lisinopril-hydrochlorothiazide 20-12.5 mg tablet 1 tab PO DAILY dexamethasone [Decadron] 6 mg tablet 6 mg PO DAILY Qty: 10 0RF dexamethasone [Decadron] 6 mg tablet 6 mg PO DAILY 10 Days Qty: 10 0RF hydrocodone-acetaminophen [hydrocodone-acetaminophen] 5-325 mg tablet 1 tab PO Q6H PRN PRN (Reason: Pain) 3 Days Qty: 10 0RF Primary Care Provider: Shelbi Holloway Referrals: Shelbi Holloway MD [Primary Care Provider] - 3-5 Days if not improving Print Language: Monegasque Disposition Disposition: Home, Self Care
[2024-03-29] MEDS: Morphine 2 MG/ML Syringe IV (21:05)
[2024-03-29] MEDS: Orphenadrine 60 MG/2 ML Ampul IV (21:06)
[2024-03-29 21:09] VITALS: O2SAT 95
[2024-03-29 21:17] LABS: Absolute Lymphocyte Count 2.99 X10^3/uL (0.83-4.51); Absolute Neutrophil Count 4.9 X10^3/uL (2.0-7.7); Basophil# 0.02 X10^3/uL; Basophil% 0.2 % (0-1); Eosinophil# 0.46 X10^3/uL; Hematocrit 41.3 % (37-47); Hemoglobin 14.6 g/dL (12.0-15.0); Lymphocyte # 2.99 X10^3/ul (0.83-4.51); Lymphocyte % 32.3 % (19-41); Mean Corp Hgb Conc 35.4 g/dL (32-36); Mean Corpuscular Hgb 31.2 pg (27.0-32.0); Mean Corpuscular Volume 88.2 fL (81-99); Mean Platelet Vol. 10.3 fl (6.2-12.0); Monocyte# 0.85 X10^3/uL; Monocyte% 9.2 % (0-10); NRBC Flagged by Analyzer 0 % (0-5); Neutrophil # 4.88 X10^3/uL (2.7-7.7); Neutrophil % 52.7 % (47-70); POSITIVE MORPHOLOGY YES; Platelet Count 307 K/mm3 (150-450); RBC Distribution Width CV 11.7 % (11.6-14.6); RBC Distribution Width SD 37.2 fl (35.1-43.9); Red Blood Count 4.68 M/mm3 (4.2-5.4); White Blood Count 9.3 K/mm3 (4.4-11.0)
--- NOTE | 2024-03-29 21:21 | RAD_ITS ---
EXAM: XR CHEST, 2 VIEWS CLINICAL INDICATION: chest pain, back pain TECHNIQUE: Frontal and lateral views of the chest. COMPARISON: March 18, 2021. FINDINGS: LUNGS AND PLEURAL SPACES: Unremarkable. No consolidation or edema. No pneumothorax. No effusion. HEART: Unremarkable. Cardiac silhouette not enlarged. MEDIASTINUM: Central airways and mediastinal contour are unremarkable. BONES/JOINTS: Mild thoracic spondylosis again noted. No acute fracture. SOFT TISSUES: Unremarkable. UPPER ABDOMEN: Cholecystectomy clips are again noted. RAD/Chest PA and Lateral IMPRESSION: No acute findings in the chest. Electronically Signed: Socorro Watkins MD at 22:26 EST ,
[2024-03-29 21:29] LABS: Anion Gap 5 (5-15); BUN 19 mg/dL (7-18); BUN/Creat Ratio 17.1 RATIO (10-20); Calcium,Total 9.4 mg/dL (8.5-10.1); Chloride 102 mmol/L (98-107); Creatinine, Serum 1.11 mg/dL (0.55-1.02); EST Glomerular Filtration Rate 51 mL/min (>60); Est Glom Filt Rate - Afr Amer 62 mL/min (>60); Estimated Creatinine Clearance 55.04 ml/min; Glucose 224 mg/dL (74-106); Potassium 3.6 mmol/L (3.5-5.1); Sodium Level 136 mmol/L (136-145); Troponin-I HS 14 pg/mL (3.0-54.0)
[2024-03-29 21:30] LABS: Differential Indicated SCAN CRITERIA MET
[2024-03-29 21:47] VITALS: BP 142/69; PULSE 81; RESP 18; TEMP 36.7; O2SAT 94
[2024-03-29 22:03] LABS: Anisocytosis RARE; Macrocytosis RARE; Platelet Estimate ADEQUATE (ADEQ); Red Cell Morphology N CHROM NORMAL (NORM C&C)
== END 2024-03-29 21:49 | disposition home or self-care (01) ==
PROVIDERS: Emergency Provider Emergency Medicine; PCP Internal Medicine; Visit Provider Emergency Medicine
DX: M54.9 Dorsalgia, unspecified (principal); E11.9 Type 2 diabetes mellitus without complications; R07.89 Other chest pain; I10 Essential (primary) hypertension; F41.9 Anxiety disorder, unspecified; F32.A Depression, unspecified; Z87.891 Personal history of nicotine dependence; Z79.899 Other long term (current) drug therapy
CPT/HCPCS: 71046; 80048; 84484; 85025; 93005; 96374; 96375; 96376; 99284; A4216